=== PATIENT | male | born 1985 | race Hispanic/Latino ===

== ENCOUNTER 2025-02-18 16:21 | Emergency (ER) | payer SELFPAY ==
[2025-02-18] MEDS ORDERED: HYDROcodone/Acetaminophen 10/325 mg Tablet ONE (17:43)
[2025-02-18] MEDS ORDERED: CEFAZOLIN 2 GM VIAL ONE (18:11)
[2025-02-18] MEDS ORDERED: Lidocaine 1% (PF) 30 ML VIAL ONE (18:19)
[2025-02-18 18:25] LABS: #Basophils 0.03 10x3/uL (0.0-0.2); #Eosinophils Less than 0.03 10x3/uL (0.0-0.7); #Monocytes 0.50 10x3/uL (0.11-0.59); #Neutrophils 10.18 10x3/uL (1.40-6.50); %Basophils 0.3 % (0.0-1.0); %Eosinophils 0.2 % (0.0-10.0); %Lymphocytes 10.1 % (21.0-51.0); %Monocytes 4.2 % (0.0-10.0); %Neutrophils 84.9 % (42.0-75.0); Hematocrit 48.2 % (42.0-52.0); Hemoglobin 15.7 g/dL (14.0-18.0); Mean Corpuscular Hemoglobin 27.3 pg (27.0-31.0); Mean Corpuscular Volume 83.7 fL (78.0-98.0); Platelet Count 345 10x3/uL (130-400); Red Blood Cell (RBC) Count 5.76 mill/uL (4.70-6.10); White Blood Cell (WBC) Count 11.98 10x3/uL (4.8-10.8)
[2025-02-18 18:41] LABS: ALT (SGPT) 20 U/L (Less than 45); AST (SGOT) 37 U/L (11-34); Albumin 4.7 g/dL (3.1-4.5); Alkaline Phosphatase 83 U/L (40-110); Anion Gap 14 mmol/L (10-20); BUN (Urea Nitrogen) 15 mg/dL (8.9-20.6); Bilirubin, Total 0.7 mg/dL (0.3-1.2); Calc. Creatinine Clearance 0 mL/min (70-130); Calcium 10.1 mg/dL (7.8-10.44); Carbon Dioxide 26 mmol/L (22-29); Chloride 105 mmol/L (98-107); Globulin 3.6 g/dL (2.4-3.5); Glucose 118 mg/dL (70-105); Potassium 4.3 mmol/L (3.5-5.1); Sodium 141 mmol/L (136-145)
[2025-02-18] MEDS ORDERED: Amoxicillin/Potassium Clav 875 MG TAB ONE (19:28)
== END 2025-02-18 20:20 | disposition home or self-care (01) ==
LOC: ERS 16:21
DX: S90.852A Superficial foreign body, left foot, initial encounter (principal); W22.09XA Striking against other stationary object, initial encounter
CPT/HCPCS: 28190; 80053; 85025; 96365; J2003

== ENCOUNTER 2025-02-20 08:09 | Observation (INO) | payer SELFPAY ==
[2025-02-20 09:34] LABS: #Basophils Less than 0.03 10x3/uL (0.0-0.2); #Eosinophils 0.05 10x3/uL (0.0-0.7); #Monocytes 0.47 10x3/uL (0.11-0.59); #Neutrophils 5.08 10x3/uL (1.40-6.50); %Basophils 0.3 % (0.0-1.0); %Eosinophils 0.7 % (0.0-10.0); %Lymphocytes 22.6 % (21.0-51.0); %Monocytes 6.4 % (0.0-10.0); %Neutrophils 69.7 % (42.0-75.0); Hematocrit 47.1 % (42.0-52.0); Hemoglobin 15.1 g/dL (14.0-18.0); Mean Corpuscular Hemoglobin 26.8 pg (27.0-31.0); Mean Corpuscular Volume 83.5 fL (78.0-98.0); Platelet Count 294 10x3/uL (130-400); Red Blood Cell (RBC) Count 5.64 mill/uL (4.70-6.10); White Blood Cell (WBC) Count 7.29 10x3/uL (4.8-10.8)
[2025-02-20] MEDS ORDERED: HYDROcodone/Acetaminophen 10/325 mg Tablet ONE (09:41)
[2025-02-20 09:55] LABS: Anion Gap 14 mmol/L (10-20); BUN (Urea Nitrogen) 15 mg/dL (8.9-20.6); Calc. Creatinine Clearance 0 mL/min (70-130); Carbon Dioxide 23 mmol/L (22-29); Chloride 105 mmol/L (98-107); Potassium 4.2 mmol/L (3.5-5.1); Sodium 138 mmol/L (136-145)
[2025-02-20 09:56] LABS: ALT (SGPT) 18 U/L (Less than 45); AST (SGOT) 25 U/L (11-34); Albumin 4.3 g/dL (3.1-4.5); Alkaline Phosphatase 78 U/L (40-110); Bilirubin, Total 0.8 mg/dL (0.3-1.2); Calcium 9.5 mg/dL (7.8-10.44); Globulin 3.2 g/dL (2.4-3.5); Glucose 107 mg/dL (70-105)
[2025-02-20] MEDS ORDERED: TETANUS, DIPHTHERIA TOX,ADULT (TDVAX) 0.5 ML VIAL IM ONE (10:38)
[2025-02-20] MEDS ORDERED: Ondansetron PF 4 MG/2 ML Vial SLOW IVP PRN (10:38)
[2025-02-20] MEDS ORDERED: Ketorolac Tromethamine 30 MG (1 mL) VIAL ONE (12:16)
[2025-02-20] MEDS: Ketorolac Tromethamine 30 MG (1 mL) VIAL IVP SCH (12:19)
[2025-02-20 13:53] VITALS: BMI 33.5
[2025-02-20] MEDS ORDERED: fentaNYL PF 100 MCG/2 ML SYRINGE ONE (16:36)
[2025-02-20] MEDS ORDERED: PROPOFOL 200 MG/20 ML VIAL ONE (16:47)
[2025-02-20] MEDS ORDERED: CEFAZOLIN 1 GM VIAL ONE (16:49)
[2025-02-20] MEDS ORDERED: Ondansetron PF 4 MG/2 ML Vial ONE (16:53)
[2025-02-20] MEDS ORDERED: HYDROcodone/Acetaminophen 5/325 mg Tablet ONE (19:04)
[2025-02-20] MEDS ORDERED: Aspirin 81 mg Enteric Coated Tablet PO SCH (21:00)
[2025-02-20 21:44] VITALS: BP 114/68; TEMP 97.8
[2025-02-22] MEDS ORDERED: FLU (Fluarix Triv) 25-26 (6MOS UP)/PF 45 MCG/0.5 ML Syringe IM ONE (09:00)
== END 2025-02-20 19:00 | disposition home or self-care (01) ==
LOC: ERS 08:09 → ERHOLD 10:38 → SURG A 17:11
PROVIDERS: ADMIT Student in an Organized Health Care Education/Training Program; ATTEND Student in an Organized Health Care Education/Training Program
PROC: 0KCW0ZZ Extirpation of Matter from Left Foot Muscle, Open Approach (ICD-10-PCS; principal; 2025-02-20)
DX: M79.5 Residual foreign body in soft tissue (principal)
CPT/HCPCS: 36415; 71045; 80053; 85025; 87040; 93005; J0690; J1100; J1885; J2250; J2405; J2704; J3010